=== PATIENT | male | born 1990 | race Two or more races ===

== ENCOUNTER 2018-12-17 23:34 | Inpatient (IN) | payer SELFPAY ==
[2018-12-17 21:45] VITALS: BMI 16.7
--- NOTE | 2018-12-18 00:01 | HP ---
CIWA Score Nausea/Vomitin Muscle Tremors: 2 Anxiety: 3 Agitation: 3 Paroxysmal Sweats: 2 Orientation: 0-Oriented Tacttile Disturbances: 2-Mild Itch/Numbness/Burn Auditory Disturbances: 2-Mild Harshness/Frighten Visual Disturbances: 2-Mild Sensitivity Headache: 2-Mild CIWA-Ar Total Score: 20 - Admission Criteria OASAS Guidelines: Admission for Medically Managed Detox: Requires at least one of the followin. CIWA greater than 12 2. Seizures within the past 24 hours 3. Delirium tremens within the past 24 hours 4. Hallucinations within the past 24 hours 5. Acute intervention needed for co occurring medical disorder 6. Acute intervention needed for co occurring psychiatric disorder 7. Severe withdrawal that cannot be handled at a lower level of care (continued vomiting, continued diarrhea, abnormal vital signs) requiring intravenous medication and/or fluids 8. Admitting History and Physical - Admission Chief Complaint: DEPENDENT ON ETOH, K2 AND MARIJUANA History Source: Patient Limitations to Obtaining History: No Limitations - Past Medical History Pulmonary: Yes: Asthma Psych: Yes: Addictions, Anxiety, Bipolar, Depression, Schizophrenia - Past Surgical History Past Surgical History: Yes: None - Smoking History Smoking history: Current every day smoker Have you smoked in the past 12 months: Yes - Alcohol/Substance Use Hx Alcohol Use: Yes Admission ROS BHS - HPI Chief Complaint: DEPENDENT ON ETOH, K2 AND MARIJUANA Allergies/Adverse Reactions: Allergies Allergy/AdvReac Type Severity Reaction Status Date / Time No Known Allergies Allergy Verified 12/17/18 21:29 History of Present Illness: THE PT. IS REQUESTING ADMISSION TO THE DETOX UNIT AND CAME FOR MEDICAL CLEARANCE. Exam Limitations: No Limitations - Ebola screening Have you traveled outside of the country in the last 21 days: No (N) Have you had contact with anyone from an Ebola affected area: No Do you have a fever: No - Review of Systems Constitutional: See HPI, Loss of Appetite, Malaise, Weakness, Unexplained wgt Loss EENT: reports: See HPI Respiratory: reports: See HPI Cardiac: reports: See HPI, Syncope GI: reports: See HPI, Diarrhea, Nausea, Poor Appetite, Vomiting, Indigestion, Abdominal cramping : reports: No Symptoms Reported, See HPI Musculoskeletal: reports: See HPI, Muscle Pain, Muscle Weakness Integumentary: reports: See HPI, Sweating Neuro: reports: See HPI, Headache, Tremors, Weakness Endocrine: reports: See HPI Psychiatric: reports: Judgement Intact, Orientated x3, Anxious, Depressed Patient History - Patient Medical History Hx Asthma: Yes Hx Human Immunodeficiency Virus (HIV): No Hx Hepatitis C: No Hx Depression: Yes Hx Suicide Attempt: Yes (IN THE PAST) Hx Bipolar Disorder: Yes Hx Schizophrenia: Yes - Patient Surgical History Past Surgical History: No - Smoking Cessation Smoking history: Current every day smoker Have you smoked in the past 12 months: Yes Hx Chewing Tobacco Use: No Initiated information on smoking cessation: Yes 'Breaking Loose' booklet given: 12/18/18 - Substance & Tx. History Hx Alcohol Use: Yes Hx Substance Use: Yes Substance Use Type: Alcohol, Marijuana Hx Substance Use Treatment: Yes - Substances abused K2/Spice Substance route: Smoking Frequency: Daily Amount used: 1 stick Age of first use: 11 Date of last use: 12/13/18 Marijuana/Hashish Substance route: Smoking Frequency: Daily Amount used: 1 stick Age of first use: 11 Date of last use: 12/16/18 Alcohol Substance route: Oral Frequency: Daily Amount used: 20 ounces of beer Age of first use: 7 Date of last use: 12/16/18 Admission Physical Exam BHS - Vital Signs Vital Signs: Vital Signs - 24 hr 12/17/18 21:33 Temperature 98.3 F Pulse Rate 87 Respiratory 16 Rate Blood Pressure 135/82 - Physical General Appearance: Yes: No Apparent Distress, Appropriately Dressed, Cachetic, Thin, Tremorous, Irritable, Sweating, Anxious HEENTM: Yes: Hearing grossly Normal, Normal Voice, TERRA, Pharynx Normal Respiratory: Yes: Chest Non-Tender, Lungs Clear, Normal Breath Sounds, No Accessory Muscle Use Neck: Yes: No masses,lesions,Nodules, Supple, Trachea in good position Breast: Yes: Breast Exam Deferred, Axillae without masses Cardiology: Yes: Regular Rhythm, Regular Rate, S1, S2 Abdominal: Yes: Normal Bowel Sounds, Non Tender, Flat, Soft Back: Yes: Normal Inspection Musculoskeletal: Yes: full range of Motion, Gait Steady, Pelvis Stable, Muscle Pain, Muscle weakness Extremities: Yes: Normal Capillary Refill, Non-Tender, Tremors 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
[2018-12-18] MEDS ORDERED: MAGNESIUM HYDROX 2400MG/30ML ORAL SUSPENSION 30 ML CUP PO PRN (00:10)
[2018-12-18] MEDS ORDERED: MAGNESIUM CITRATE 300 ML BOTTLE PO PRN (00:10)
[2018-12-18] MEDS ORDERED: MENTHOL/PHENOL 1 EACH UD MM PRN (00:10)
[2018-12-18] MEDS ORDERED: MAG HYDROX/AL HYDROX/SIMETH 30 ML UNIT-DOSE CUP PO PRN (00:10)
[2018-12-18] MEDS ORDERED: BISMUTH SUBSALICYLATE 524 MG/30 ML UD PO PRN (00:10)
[2018-12-18] MEDS ORDERED: chlordiazePOXIDE HCL 25 MG CAPSULE PO ONE (00:10)
[2018-12-18] MEDS ORDERED: NICOTINE POLACRILEX 2 MG GUM BUC PRN (00:10)
[2018-12-18] MEDS ORDERED: hydrOXYzine PAMOATE 25 MG CAPSULE (FP) PO PRN (00:10)
[2018-12-18] MEDS ORDERED: ACETAMINOPHEN 325 MG TABLET (FP) PO PRN ×2 (00:10)
[2018-12-18] MEDS ORDERED: MELATONIN 5 MG TABLETS PO PRN (00:10)
[2018-12-18] MEDS ORDERED: IBUPROFEN 400 MG TABLET (FP) PO PRN (00:10)
[2018-12-18] MEDS ORDERED: chlordiazePOXIDE HCL 25 MG CAPSULE PO PRN (00:10)
[2018-12-18] MEDS ORDERED: ALBUTEROL SO4 8 GM HFA INHALER IH PRN (00:30)
[2018-12-18] MEDS: METHOCARBAMOL 500 MG TABLET PO PRN ×2 (01:17→17:12)
[2018-12-18] MEDS: DIVALPROEX SODIUM 250 MG TABLET E.C. PO SCH ×4 (01:27→23:57)
[2018-12-18] MEDS: chlordiazePOXIDE HCL 25 MG CAPSULE PO SCH ×5 (06:50→23:10)
[2018-12-18] MEDS ORDERED: OLANZapine 10 MG TABLET PO SCH (10:00)
[2018-12-18] MEDS ORDERED: NICOTINE 7 MG/24 HOURS TOPICAL PATCH TD SCH (10:00)
[2018-12-18 10:10] LABS: ALBUMIN 3.6 g/dl (3.4-5.0); BLOOD UREA NITROGEN 16.4 mg/dL (7-18); CALCIUM 9.2 mg/dL (8.5-10.1); CREATININE 0.7 mg/dL (0.55-1.3); POTASSIUM 3.8 mmol/L (3.5-5.1)
[2018-12-18 10:11] LABS: HEMOGLOBIN 14.9 GM/dL (11.7-16.9); MCH 29.3 pg (25.7-33.7); MCHC 33.8 g/dl (32.0-35.9); MEAN CELL VOLUME 86.7 fl (80-96); MEAN PLT VOLUME 8.3 fl (7.5-11.1); PLATELET COUNT 382 K/MM3 (134-434); RBC 5.08 M/mm3 (4.00-5.60); RDW 15.9 % (11.9-15.9); WHITE BLOOD COUNT 9.6 K/mm3 (4.0-10.0)
[2018-12-18] MEDS: PRENATAL VITAMINS W/ FOLIC ACID TABLET (FP) PO SCH ×2 (10:11→10:15)
--- NOTE | 2018-12-18 14:32 | PN ---
[facility] CIWA - CIWA Score Nausea/Vomitin-Mild Nausea/No Vomiting Muscle Tremors: 4-Moderate,w/Arms Extend Anxiety: 4-Mod. Anxious/Guarded Agitation: 4-Moderately Restless Paroxysmal Sweats: 3 Orientation: 0-Oriented Tacttile Disturbances: 0-None Auditory Disturbances: 0-None Visual Disturbances: 0-None Headache: 0-None Present CIWA-Ar Total Score: 16 S Progress Note (SOAP) Subjective: Headache, chills, anxious, experiencing AH to punch the wall (denies SI and denies psych hx, agrees to see Psychiatrist) Objective: 12/18/18 14:27 Last Vital Signs Temp Pulse Resp BP Pulse Ox 99.5 F 97 H 18 116/68 12/18/18 09:49 12/18/18 09:49 12/18/18 09:49 12/18/18 09:49 Temp 100.6 (updated temp as per assigned RN) Laboratory Tests 12/18/18 12/18/18 12/18/18 07:40 07:40 07:40 WBC 9.6 RBC 5.08 Hgb 14.9 Hct 44.0 MCV 86.7 MCH 29.3 MCHC 33.8 RDW 15.9 Plt Count 382 MPV 8.3 Sodium 138 Potassium 3.8 Chloride 98 Carbon Dioxide 30 Anion Gap 10 BUN 16.4 Creatinine 0.7 Est GFR (CKD-EPI)AfAm 146.77 Est GFR (CKD-EPI)NonAf 126.64 Random Glucose 90 Calcium 9.2 Total Bilirubin 1.0 AST 18 ALT 17 Alkaline Phosphatase 159 H Total Protein 7.0 Albumin 3.6 RPR Titer HIV 1&2 Antibody Screen Negative HIV P24 Antigen Negative 12/18/18 07:40 WBC RBC Hgb Hct MCV MCH MCHC RDW Plt Count MPV Sodium Potassium Chloride Carbon Dioxide Anion Gap BUN Creatinine Est GFR (CKD-EPI)AfAm Est GFR (CKD-EPI)NonAf Random Glucose Calcium Total Bilirubin AST ALT Alkaline Phosphatase Total Protein Albumin RPR Titer Nonreactive HIV 1&2 Antibody Screen HIV P24 Antigen Labs reviewed Assessment: 12/18/18 14:29 Withdrawal sxs Low grade temp reported Plan: Continue detox Encouraged PO water intake Psych consult ordered re: AH to punch wall Low grade fever (temp 100.6): most likely from withdrawal, give tylenol prn, continue to monitor VS, cbc wnl, needs reassessment if temp =>101
--- NOTE | 2018-12-18 17:12 | PN ---
[facility] Progress Note Note: called by nurse to evaluate patient alert,oriented x 3 stated hearing voice hallucination ,siren voice denied suicidal,denied homicidal anxious history of anxiety,depression,insomnia,non compliance of medication treatment one on one for patient safety psychiatric consultation and evaluation vistaril 50 mgs po now then prn for anxiety q 4 hrs
[2018-12-18] MEDS ORDERED: hydrOXYzine PAMOATE 50 MG CAPSULE (FP) PO PRN (17:19)
[2018-12-18] MEDS ORDERED: THIAMINE HCL 100 MG TABLET (FP) PO SCH (22:00)
[2018-12-19] MEDS: ALBUTEROL SO4 2.5/IPRATROPIUM 0.5 INH SOL 3 ML VIAL.NEB. NEB SCH ×2 (04:30→07:21)
[2018-12-19] MEDS ORDERED: chlordiazePOXIDE HCL 25 MG CAPSULE PO SCH (05:00)
--- NOTE | 2018-12-19 07:49 | CONSULT ---
[facility] Psychiatric Consult - Data Date of interview: 12/19/18 Admission source: [facility] Identifying data: Mr Stokes is a 28 years old single Black male, unemployed with no source of income, homeless seeking detox for alcohol and cannabis Substance Abuse History: Reports history of alcohol, marijuana and k2 use. Refer to addiction counselor's summary for further information Medical History: Significant for bronchial asthma. Smokes 1-2 cigarettes daily Psychiatric History: Patient reports that his first psychiatric contact was at age 15 when because of behavior displayed in the context of using marijuana, his mother brought him to [facility] for a psychiatric evaluation. He said that he was evaluated and admitted to a psychiaric unit for a month. He was diagnosed with Bipolar/Schizophenia and started on Zyprexa, Depakote and Vistaril. Reports 5 subsequent psychiatric hospitalizations at various facilities including [facility] in [place], [facility] and most recently in [address] [facility]. Reports that his last psychiatric treatment was while incarcerated in [facility] for 8 months before his release in May 2018. He was prescribed Zyprexa 10 mg/hs, Depakote( gutierrez unknown). He said that he ran out of medications after using the supply provided to him upon his release. Reports one suicidal attempt at age 24 via self-mutilation while incarcerated. Patient was evaluated because he was placed on 1:1 late yesterday afternoon after telling stafff that he was hearing voices telling him to kill himself and punched reese. When patient was asked by scientific writer about hearing voices yesterday, he told scientific writer that he was lying about that. He said that he is homeless and said that to get help. He denies vehemently experiencing auditory hallucinations and harboring suicidal ideations. Physical/Sexual Abuse/Trauma History: Denies history of emotional, physical or sexual abuse as DV relationship. Additional Comment: Reports history of multiple previous misdemeanor arrests on charges of stresspassing, marijuana possession and fighting Mental Status Exam - Mental Status Exam Alert and Oriented to: Time, Place, Person Cognitive Function: Fair Patient Appearance: Disheveled Mood: Hopeful, Euthymic Affect: Appropriate Patient Behavior: Guarded (mildly), Cooperative Speech Pattern: Clear Voice Loudness: Normal Thought Process: Intact, Goal Oriented Hallucinations: Denies Suicidal Ideation: Denies Homicidal Ideation: Denies Insight/Judgement: Poor Sleep: Well Appetite: Good Muscle strength/Tone: Normal Gait/Station: Normal Psychiatric Findings - Problem List ([place] 1, 2,3) (1) Schizoaffective disorder Current Visit: Yes Status: Chronic (2) Uncomplicated alcohol dependence Current Visit: Yes Status: Acute (3) Cannabis dependence Current Visit: Yes Status: Acute (4) Nicotine dependence Current Visit: Yes Status: Chronic (5) Bronchial asthma Current Visit: Yes Status: Acute - Initial Treatment Plan Initial Treatment Plan: 1) Patient is psychiatrically stable and does not need 1 :1. 2) Resume Zyprexa 10 mg po daily. 3) Continue inpatient detoxification
[2018-12-19 09:44] VITALS: BP 126/79; PULSE 117; TEMP 97.9
--- NOTE | 2018-12-19 09:59 | PN ---
[facility] Progress Note Note: Patient requests to be discharged today. Script for 30 days supply of Zyprexa 10 mg/day is electronically transmitted to [facility] at [address] [place], [place] [id number]
--- NOTE | 2018-12-19 10:26 | PN ---
[facility] CIWA - CIWA Score Nausea/Vomitin-Mild Nausea/No Vomiting Muscle Tremors: 1-None Visible, but [place] Anxiety: 2 Agitation: 2 Paroxysmal Sweats: No Perspiration Orientation: 0-Oriented Tacttile Disturbances: 0-None Auditory Disturbances: 0-None Visual Disturbances: 0-None Headache: 0-None Present CIWA-Ar Total Score: 6 BHS Progress Note (SOAP) Subjective: alert,irritable,anxious,interrupted sleep Objective: 12/19/18 10:23 Vital Signs Temperature 97.9 F 12/19/18 09:44 Pulse Rate 117 H 12/19/18 09:44 Respiratory Rate 18 12/19/18 09:44 Blood Pressure 126/79 12/19/18 09:44 O2 Sat by Pulse Oximetry (%) 12/19/18 10:24 withdrawal symptom 12/19/18 10:25 Laboratory Last Values WBC 9.6 K/mm3 (4.0-10.0) 12/18/18 07:40 RBC 5.08 M/mm3 (4.00-5.60) 12/18/18 07:40 Hgb 14.9 GM/dL (11.7-16.9) 12/18/18 07:40 Hct 44.0 % (35.4-49) 12/18/18 07:40 MCV 86.7 fl (80-96) 12/18/18 07:40 MCH 29.3 pg (25.7-33.7) 12/18/18 07:40 MCHC 33.8 g/dl (32.0-35.9) 12/18/18 07:40 RDW 15.9 % (11.9-15.9) 12/18/18 07:40 Plt Count 382 K/MM3 (134-434) 12/18/18 07:40 MPV 8.3 fl (7.5-11.1) 12/18/18 07:40 Sodium 138 mmol/L (136-145) 12/18/18 07:40 Potassium 3.8 mmol/L (3.5-5.1) 12/18/18 07:40 Chloride 98 mmol/L (98-107) 12/18/18 07:40 Carbon Dioxide 30 mmol/L (21-32) 12/18/18 07:40 Anion Gap 10 MMOL/L (8-16) 12/18/18 07:40 BUN 16.4 mg/dL (7-18) 12/18/18 07:40 Creatinine 0.7 mg/dL (0.55-1.3) 12/18/18 07:40 Est GFR (CKD-EPI)AfAm 146.77 12/18/18 07:40 Est GFR (CKD-EPI)NonAf 126.64 12/18/18 07:40 Random Glucose 90 mg/dL (74-106) 12/18/18 07:40 Calcium 9.2 mg/dL (8.5-10.1) 12/18/18 07:40 Total Bilirubin 1.0 mg/dL (0.2-1) 12/18/18 07:40 AST 18 U/L (15-37) 12/18/18 07:40 ALT 17 U/L (13-61) 12/18/18 07:40 Alkaline Phosphatase 159 U/L (45-117) H 12/18/18 07:40 Total Protein 7.0 g/dl (6.4-8.2) 12/18/18 07:40 Albumin 3.6 g/dl (3.4-5.0) 12/18/18 07:40 RPR Titer Nonreactive (NONREACTIVE) 12/18/18 07:40 HIV 1&2 Antibody Screen Negative 12/18/18 07:40 HIV P24 Antigen Negative 12/18/18 07:40 Assessment: 12/19/18 10:25 withdrawal symptom Plan: continue detox librium regimen
--- NOTE | 2018-12-19 11:12 | DS ---
[facility] Detox Discharge Summary Admission Date: 12/18/18 Discharge Date: 12/19/18 - History Present History: Alcohol Dependence, Cannabis Dependence, K 2 Additional Comments: patient signed release ama,psychiatric clear by Dr Fallon Pertinent Past History: bipolar disorder - Physical Exam Results Vital Signs: Vital Signs Temperature 97.9 F 12/19/18 09:44 Pulse Rate 117 H 12/19/18 09:44 Respiratory Rate 18 12/19/18 09:44 Blood Pressure 126/79 12/19/18 09:44 O2 Sat by Pulse Oximetry (%) Pertinent Admission Physical Exam Findings: withdrawal signs and symptom Vital Signs Temperature 97.9 F 12/19/18 09:44 Pulse Rate 117 H 12/19/18 09:44 Respiratory Rate 18 12/19/18 09:44 Blood Pressure 126/79 12/19/18 09:44 O2 Sat by Pulse Oximetry (%) - Medication Discharge Medications: Ambulatory Orders Divalproex Sodium [Depakote] 250 mg PO BID 12/17/18 Olanzapine [Zyprexa] 10 mg PO DAILY #30 tablet 12/19/18 - Diagnosis (1) Alcohol dependence with uncomplicated withdrawal Current Visit: Yes Status: Acute (2) Cannabis dependence Current Visit: Yes Status: Acute (3) Nicotine dependence Current Visit: Yes Status: Chronic (4) Bipolar disorder Current Visit: Yes Status: Acute - AMA Did Patient Leave Against Medical Advice: Yes
[2018-12-19] MEDS ORDERED: FLU VACCINE QUAD 60 MCG/0.5 ML (MDV 19-20) IM ONE (12:00)
[2018-12-20] MEDS ORDERED: chlordiazePOXIDE HCL 10 MG CAPSULE PO PRN
[2018-12-20] MEDS ORDERED: chlordiazePOXIDE HCL 10 MG CAPSULE PO SCH (05:00)
[2018-12-21] MEDS ORDERED: chlordiazePOXIDE HCL 10 MG CAPSULE PO SCH (05:00)
[2018-12-22] MEDS ORDERED: chlordiazePOXIDE HCL 10 MG CAPSULE PO ONE (05:00)
== END 2018-12-19 10:23 | disposition left against medical advice (07) | DRG 770 ==
LOC: YASAS 23:34 → Y6N 12-18 00:08
PROVIDERS: ADMIT Allergy & Immunology; ATTEND Allergy & Immunology
PROC: HZ2ZZZZ Detoxification Services for Substance Abuse Treatment (ICD-10-PCS; principal; 2018-12-18)
DX: F10.230 Alcohol dependence with withdrawal, uncomplicated (principal); F12.20 Cannabis dependence, uncomplicated; F17.210 Nicotine dependence, cigarettes, uncomplicated; F31.9 Bipolar disorder, unspecified; F25.9 Schizoaffective disorder, unspecified; J45.909 Unspecified asthma, uncomplicated; D50.9 Iron deficiency anemia, unspecified; Z91.5 Personal history of self-harm
CPT/HCPCS: 36415; 80053; 85027; 86593; 87389; 94640